=== PATIENT | female | born 1970 | race Asian ===

== ENCOUNTER 2019-11-08 05:50 | Day surgery (SDC) | payer BC, SELFPAY ==
[2019-11-04 10:31] LABS: BASOPHILS % (AUTO) 0.7 % (0.0-2.0); EOSINOPHILS # (AUTO) 0.1 K/uL (0.0-0.4); EOSINOPHILS % (AUTO) 1.6 % (0.0-4.0); HEMATOCRIT 36.7 % (36-48); HEMOGLOBIN 12.7 g/dL (12.0-16.0); LYMPHOCYTES # (AUTO) 1.2 K/uL (1.0-5.5); LYMPHOCYTES % (AUTO) 16.2 % (20.5-51.5); MEAN CORPUSCULAR HEMOGLOBIN 33 pg (27-31); MEAN CORPUSCULAR HGB CONC 35 % (32-36); MEAN CORPUSCULAR VOLUME 94 fL (79.0-98.0); MONOCYTES # (AUTO) 0.4 K/uL (0.0-1.0); NEUTROPHILS # (AUTO) 5.6 K/uL (1.8-7.7); NEUTROPHILS % (AUTO) 75.5 % (40.0-70.0); PLATELET COUNT (AUTO) 284 K/uL (130-430); RED BLOOD CELL COUNT(AUTO) 3.91 MIL/uL (4.2-6.2); RED CELL DISTRIBUTION WIDTH 12.9 % (9.0-15.0); WHITE BLOOD COUNT (AUTO) 7.4 K/uL (4.8-10.8)
[2019-11-04 10:51] LABS: BILIRUBIN,URINE NEGATIVE (NEGATIVE); BLOOD, URINE NEGATIVE (NEGATIVE); CLARITY/URINE CLEAR (CLEAR); COLOR,URINE YELLOW (YELLOW); GLUCOSE,URINE NEGATIVE (NEGATIVE); KETONES,URINE NEGATIVE (NEGATIVE); LEUKOCYTE ESTERASE ,URINE NEGATIVE (NEGATIVE); NITRITE, URINE NEGATIVE (NEGATIVE); PROTEIN URINE NEGATIVE (NEGATIVE); UROBILINOGEN,URINE 0.2 (0.2-1.0)
--- NOTE | 2019-11-07 09:30 | NUR ---
Called Pt number [phone] left message for phone interview. Called mother [phone] and she stated that pt is at work and does not answer phone at work. Will follow up in the PM for phone interview and pre-op instructions.
--- NOTE | 2019-11-07 13:50 | NUR ---
Angela BYERS called pt again and left message called Josue Dubon [phone] and left message to call back. Called Mother [phone] and asked to contact pt to callback for presurgery instructions. Mother stated she will try and reach her.
[~2019-11-08] VITALS: Ht 165.1 cm; Wt 78.5 kg
[2019-11-08 07:14] LABS: HCG,QUAL RESULT NEGATIVE (NEGATIVE)
[2019-11-08 07:17] LABS: BILIRUBIN,URINE NEGATIVE (NEGATIVE); CLARITY/URINE SL CLOUDY (CLEAR); COLOR,URINE YELLOW (YELLOW); GLUCOSE,URINE NEGATIVE (NEGATIVE); KETONES,URINE NEGATIVE (NEGATIVE); LEUKOCYTE ESTERASE ,URINE TRACE (NEGATIVE); NITRITE, URINE NEGATIVE (NEGATIVE); PROTEIN URINE NEGATIVE (NEGATIVE); UROBILINOGEN,URINE 0.2 (0.2-1.0)
[2019-11-08 07:21] LABS: BLOOD, URINE TRACE (NEGATIVE)
[2019-11-08] MEDS ORDERED: CEFAZOLIN SOD 1 GM in D5W 50 ML IV ONE (07:30)
[2019-11-08] MEDS ORDERED: LR 1,000 ML IV ONE (07:33)
[2019-11-08] MEDS ORDERED: MEPERIDINE HCL/PF 25 MG/ML DISP.SYRIN IVP PRN (07:45)
[2019-11-08] MEDS ORDERED: HYDROmorphone 1 MG INJ. 1 MG/ML AMPUL IVP PRN ×2 (07:45)
[2019-11-08] MEDS ORDERED: ONDANSETRON HCL 4 MG/2 ML VIAL IVP PRN ×2 (07:45→10:45)
[2019-11-08] MEDS ORDERED: SEVOFLURANE 15 MIN GAS INH ONE (08:09)
[2019-11-08] MEDS ORDERED: LR 1,000 ML IV.SOLN IV ONE (08:09)
[2019-11-08] MEDS ORDERED: fentaNYL CITRATE 250 MCG/5 ML AMP IV ONE (08:09)
[2019-11-08] MEDS ORDERED: NS IRRIG SOLN 1000 ML IR ONE (08:09)
[2019-11-08] MEDS ORDERED: WATER FOR IRRIGATION,STERILE 4,000 ML IRRIG.SOLN IR ONE (08:09)
[2019-11-08] MEDS ORDERED: NS 1000 ML IV.SOLN IV ONE (08:09)
[2019-11-08] MEDS ORDERED: DEXAMETHASONE SOD PHOSPHATE 4 MG/ML VIAL IVP ONE (08:09)
[2019-11-08] MEDS ORDERED: ONDANSETRON HCL 4 MG/2 ML VIAL IVP ONE (08:09)
[2019-11-08 08:33] LABS: BACTERIA,URINE FEW /HPF (None Seen); MUCUS,URINE 1+ /LPF (None Seen); WBC,URINE 0-3 /HPF (0-3)
[2019-11-08 09:55] VITALS: BP_SYST 130
[2019-11-08] MEDS ORDERED: OXYCODONE/ACETAMINOPHEN 5-325 TABLET PO PRN ×2 (11:00)
[2019-11-08] MEDS ORDERED: HYDROcodone/ACETAMIN 5-325 MG TAB (NORCO/ VICODIN) PO PRN (11:00)
== END 2019-11-08 12:30 | disposition home or self-care (01) ==
LOC: SDS 05:50 → SMU 05:50 → SDS 12:30
PROVIDERS: ATTEND Specialist
DX: D25.1 Intramural leiomyoma of uterus (principal); I10 Essential (primary) hypertension; N92.6 Irregular menstruation, unspecified; N94.89 Other specified conditions associated with female genital organs and menstrual cycle; N84.0 Polyp of corpus uteri; Z79.899 Other long term (current) drug therapy; Z11.59 Encounter for screening for other viral diseases
CPT/HCPCS: 36415; 58558; 71046; 81000; 81003; 84703 ×2; 85025; 88305; 93005; C1819; J0690; J7060; U0003; J1100; J2405; J3010; J7030; J7120